=== PATIENT | male | born 1945 | race Caucasian/White ===

== ENCOUNTER → 2018-05-19 | Outpatient (CLI) | payer MEDICARE, BC ==
--- NOTE | 2018-05-19 11:15 | XR ---
EXAMINATION TYPE: XR hand complete LT DATE OF EXAM: 05/19/2018 CLINICAL HISTORY: Follow-up for fracture of the left fifth metacarpal. TECHNIQUE: Frontal, lateral and oblique images of the left hand are obtained. COMPARISON: None. FINDINGS: Healing subacute fracture deformity of the fifth metacarpal metaphysis and metacarpal head are seen with apex dorsal angulation and anterior (volar) displacement of the distal fracture fragmen t approximately 2 mm. Overlying soft tissue swelling remains of the ulnar aspect of the hand overlyin g the metacarpals. No radiopaque foreign body is seen. Mild arthropathy of the first metacarpal phala ngeal joint and distal interphalangeal joints is in the distribution of osteoarthritis. IMPRESSION: Healing fracture deformity of the distal fifth metacarpal metaphysis extending into the m etacarpal head.
== END | disposition home or self-care (01) ==
LOC: RADXRYALE 10:28
PROVIDERS: ATTEND Physician Assistant
DX: S62.397D Other fracture of fifth metacarpal bone, left hand, subsequent encounter for fracture with routine healing (principal)

== ENCOUNTER 2019-03-28 08:17 | Observation (INO) | payer MEDICARE, BC ==
--- NOTE | 2019-03-28 08:55 | ED ---
Arrhythmia/Palpitations HPI - General Chief Complaint: Arrhythmia/Palpitations Stated Complaint: A-Fib Time Seen by Provider: 03/28/19 08:30 Source: patient, RN notes reviewed Mode of arrival: wheelchair Limitations: no limitations - History of Present Illness Initial Comments: This is a 73-year-old male history of atrial fibrillation the past who states he had the onset this morning at about 6:30 of fluttering feeling in his chest he feels like he went back into his atrial fibrillation. He did take his medications this morning which included the beta vicky that he is on. No recent changes in the dosages. No other modifying factors he did have some slight shortness of breath with it no chest pain. He does state EKG goes into brief bouts of this. He did have an episode about a year ago in [place] where he was given IV medication as well as heart rate down and was as high as 170 bpm. MD Complaint: rapid heart beat, palpitations, atrial fibrillation - Related Data Home Medications Medication Instructions Recorded Confirmed Simvastatin 40 mg PO HS 08/06/15 03/28/19 Tamsulosin HCl 0.4 mg PO DAILY 08/06/15 03/28/19 Ascorbic Acid [Vitamin C] 500 mg PO DAILY 03/28/19 03/28/19 Aspirin 325 mg PO DAILY 03/28/19 03/28/19 Atenolol [Tenormin] 50 mg PO DAILY 03/28/19 03/28/19 L.acidoph,Paracasei, B.lactis 1 cap PO DAILY 03/28/19 03/28/19 [Probiotic] Multivitamins, Thera [Multivitamin 1 tab PO DAILY 03/28/19 03/28/19 (formulary)] Ubidecarenone [Co Q-10] 300 mg PO DAILY 03/28/19 03/28/19 Zolpidem Tartrate [Ambien] 10 mg PO HS 03/28/19 03/28/19 Allergies Allergy/AdvReac Type Severity Reaction Status Date / Time metronidazole [From Flagyl] Allergy Unknown Verified 03/28/19 08:49 Review of Systems ROS Statement: Those systems with pertinent positive or pertinent negative responses have been documented in the HPI. ROS Other: All systems not noted in ROS Statement are negative. Past Medical History Past Medical History: Cancer, Hyperlipidemia, Prostate Disorder Additional Past Medical History / Comment(s): palpitations. prostate CA-10/2012-HAD. chronic diarrhea since April 2015 History of Any Multi-Drug Resistant Organisms: None Reported Past Surgical History: Hernia Repair Additional Past Surgical History / Comment(s): COLONOSCOPY Past Anesthesia/Blood Transfusion Reactions: No Reported Reaction Smoking Status: Never smoker Past Alcohol Use History: Occasional Past Drug Use History: None Reported - Past Family History Mother Family Medical History: Unable to Obtain General Exam - General Exam Comments Initial Comments: This a well-developed well-nourished awake alert oriented 3 male Limitations: no limitations General appearance: alert, in no apparent distress Head exam: Present: atraumatic, normocephalic, normal inspection Eye exam: Present: normal appearance, PERRL, EOMI. Absent: scleral icterus, conjunctival injection, periorbital swelling ENT exam: Present: normal exam, mucous membranes moist Neck exam: Present: normal inspection, full ROM, other (No stridor JVD or bruits). Absent: tenderness, meningismus, lymphadenopathy Respiratory exam: Present: normal lung sounds bilaterally. Absent: respiratory distress, wheezes, rales, rhonchi, stridor Cardiovascular Exam: Present: irregular rhythm, normal heart sounds. Absent: systolic murmur, diastolic murmur, rubs, gallop, clicks GI/Abdominal exam: Present: soft, normal bowel sounds. Absent: distended, tenderness, guarding, rebound, rigid Extremities exam: Present: normal inspection, full ROM, normal capillary refill. Absent: tenderness, pedal edema, joint swelling, calf tenderness Back exam: Present: normal inspection Neurological exam: Present: alert, oriented X3, CN II-XII intact Psychiatric exam: Present: normal affect, normal mood Skin exam: Present: warm, dry, intact, normal color. 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 EKG Findings - EKG Results: EKG: interpreted by MARJORIE (Fibrillation rate was 94 QRS 78 QT since QTC 344/4:30 nonspecific inferior and anterior changes.) Medical Decision Making - Medical Decision Making Patient remains in atrial fibrillation he is on no anticoagulants at this time patient will be admitted with cardiology consultation the case is discussed with Dr. Martinez - Lab Data Result diagrams: 03/28/19 08:49 03/28/19 08:49 Lab Results 03/28/19 03/28/19 03/28/19 Range/Units 08:49 08:49 08:49 WBC 5.2 (3.8-10.6) k/uL RBC 4.99 (4.30-5.90) m/uL Hgb 14.3 (13.0-17.5) gm/dL Hct 42.5 (39.0-53.0) % MCV 85.2 (80.0-100.0) fL MCH 28.6 (25.0-35.0) pg MCHC 33.6 (31.0-37.0) g/dL RDW 13.8 (11.5-15.5) % Plt Count 196 (150-450) k/uL Neutrophils % 68 % Lymphocytes % 20 % Monocytes % 6 % Eosinophils % 5 % Basophils % 1 % Neutrophils # 3.5 (1.3-7.7) k/uL Lymphocytes # 1.0 (1.0-4.8) k/uL Monocytes # 0.3 (0-1.0) k/uL Eosinophils # 0.3 (0-0.7) k/uL Basophils # 0.0 (0-0.2) k/uL PT 10.1 (9.0-12.0) sec INR 0.9 (<1.2) APTT 23.5 (22.0-30.0) sec Sodium 140 (137-145) mmol/L Potassium 4.1 (3.5-5.1) mmol/L Chloride 106 (98-107) mmol/L Carbon Dioxide 25 (22-30) mmol/L Anion Gap 9 mmol/L BUN 11 (9-20) mg/dL Creatinine 0.72 (0.66-1.25) mg/dL Est GFR (CKD-EPI)AfAm >90 (>60 ml/min/1.73 sqM) Est GFR (CKD-EPI)NonAf >90 (>60 ml/min/1.73 sqM) Glucose 108 H (74-99) mg/dL Calcium 9.7 (8.4-10.2) mg/dL Magnesium 1.9 (1.6-2.3) mg/dL Total Bilirubin 1.2 (0.2-1.3) mg/dL AST 24 (17-59) U/L ALT 27 (21-72) U/L Alkaline Phosphatase 58 (38-126) U/L Creatine Kinase 87 (55-170) U/L Troponin I (0.000-0.034) ng/mL Total Protein 6.9 (6.3-8.2) g/dL Albumin 4.3 (3.5-5.0) g/dL TSH 3.200 (0.465-4.680) mIU/L 03/28/19 Range/Units 08:49 WBC (3.8-10.6) k/uL RBC (4.30-5.90) m/uL Hgb (13.0-17.5) gm/dL Hct (39.0-53.0) % MCV (80.0-100.0) fL MCH (25.0-35.0) pg MCHC (31.0-37.0) g/dL RDW (11.5-15.5) % Plt Count (150-450) k/uL Neutrophils % % Lymphocytes % % Monocytes % % Eosinophils % % Basophils % % Neutrophils # (1.3-7.7) k/uL Lymphocytes # (1.0-4.8) k/uL Monocytes # (0-1.0) k/uL Eosinophils # (0-0.7) k/uL Basophils # (0-0.2) k/uL PT (9.0-12.0) sec INR (<1.2) APTT (22.0-30.0) sec Sodium (137-145) mmol/L Potassium (3.5-5.1) mmol/L Chloride (98-107) mmol/L Carbon Dioxide (22-30) mmol/L Anion Gap mmol/L BUN (9-20) mg/dL Creatinine (0.66-1.25) mg/dL Est GFR (CKD-EPI)AfAm (>60 ml/min/1.73 sqM) Est GFR (CKD-EPI)NonAf (>60 ml/min/1.73 sqM) Glucose (74-99) mg/dL Calcium (8.4-10.2) mg/dL Magnesium (1.6-2.3) mg/dL Total Bilirubin (0.2-1.3) mg/dL AST (17-59) U/L ALT (21-72) U/L Alkaline Phosphatase (38-126) U/L Creatine Kinase (55-170) U/L Troponin I <0.012 (0.000-0.034) ng/mL Total Protein (6.3-8.2) g/dL Albumin (3.5-5.0) g/dL TSH (0.465-4.680) mIU/L - Radiology Data Radiology results: report reviewed (Did review the imaging and report no acute findings), image reviewed Disposition Clinical Impression: Atrial fibrillation Disposition: ADMITTED IP TO THIS [facility] Condition: Fair Referrals: Attila Melgar DO [Primary Care Provider] - 1-2 days
--- NOTE | 2019-03-28 09:11 | XR ---
EXAMINATION TYPE: XR chest 2V DATE OF EXAM: 03/28/2019 COMPARISON: NONE HISTORY: Dysrhythmia TECHNIQUE: Frontal and lateral views of the chest are obtained. FINDINGS: There is no focal air space opacity, pleural effusion, or pneumothorax seen. The cardiac silhouette size is within normal limits. The osseous structures are intact. There are overlying car diac leads. IMPRESSION: No acute cardiopulmonary process.
[2019-03-28 09:13] LABS: INR 0.9 (<1.2); Partial Thromboplastin Time 23.5 sec (22.0-30.0); Prothrombin Time 10.1 sec (9.0-12.0)
[2019-03-28 09:17] LABS: ALT 27 U/L (21-72); AST 24 U/L (17-59); Albumin 4.3 g/dL (3.5-5.0); Alkaline Phosphatase 58 U/L (38-126); Anion Gap 9 mmol/L; Blood Urea Nitrogen 11 mg/dL (9-20); Calcium 9.7 mg/dL (8.4-10.2); Carbon Dioxide 25 mmol/L (22-30); Chloride 106 mmol/L (98-107); Creatine Kinase 87 U/L (55-170); Glucose 108 mg/dL (74-99); Magnesium 1.9 mg/dL (1.6-2.3); Potassium 4.1 mmol/L (3.5-5.1); Sodium 140 mmol/L (137-145); Total Bilirubin 1.2 mg/dL (0.2-1.3); Total Protein 6.9 g/dL (6.3-8.2)
[2019-03-28 09:33] LABS: Basophils % (A) 1 %; Eosinophils # (A) 0.3 k/uL (0-0.7); Eosinophils % (A) 5 %; HCT 42.5 % (39.0-53.0); HGB 14.3 gm/dL (13.0-17.5); Lymphocytes % (A) 20 %; MCH 28.6 pg (25.0-35.0); MCHC 33.6 g/dL (31.0-37.0); MCV 85.2 fL (80.0-100.0); Mean Platelet Volume 7.6; Monocytes # (A) 0.3 k/uL (0-1.0); Monocytes % (A) 6 %; Neutrophils # (A) 3.5 k/uL (1.3-7.7); Neutrophils % (A) 68 %; Platelet Count 196 k/uL (150-450); RBC 4.99 m/uL (4.30-5.90); RDW 13.8 % (11.5-15.5); WBC 5.2 k/uL (3.8-10.6)
[2019-03-28] MEDS ORDERED: METOPROLOL TARTRATE 5 MG/5 ML VIAL IVP STA (12:04)
[2019-03-28] MEDS ORDERED: NALOXONE 0.4 MG/ML 1 ML VIAL IV PRN (12:10)
[2019-03-28] MEDS ORDERED: HEPARIN SODIUM,PORCINE 5,000 UNIT/ML 1 ML VIAL IV ONE (12:13)
[2019-03-28] MEDS ORDERED: HEPARIN SODIUM,PORCINE 5,000 UNIT/ML 1 ML VIAL IV PRN (12:13)
[2019-03-28] MEDS ORDERED: HEPARIN SOD,PORK IN 0.45% NACL 25,000 UNIT in 0.45% NACL 1 250ML.BAG IV SCH (12:15)
[2019-03-28] MEDS ORDERED: MAGNESIUM SULFATE-D5W PMX 1 GM in DEXTROSE/WATER 1 100ML.BAG IVPB ONE (12:15)
[2019-03-28 14:41] VITALS: BMI 27.1
[2019-03-28] MEDS: SODIUM CHLORIDE 0.9% 1,000 ML IV SCH (17:06)
[2019-03-28] MEDS: APIXABAN 5 MG TAB PO SCH (20:36)
[2019-03-28] MEDS ORDERED: ATORVASTATIN 20 MG TAB PO SCH (21:00)
[2019-03-28] MEDS ORDERED: ZOLPIDEM 10 MG TAB PO SCH (21:00)
[2019-03-28] MEDS ORDERED: TAMSULOSIN 0.4 MG CAP.ER.24H PO SCH (22:16)
[2019-03-28] MEDS ORDERED: TEMAZEPAM 15 MG CAP PO PRN (22:18)
[2019-03-28] MEDS ORDERED: LORazepam 1 MG TAB PO PRN (22:18)
--- NOTE | 2019-03-28 23:55 | CONS ---
CONSULTATION Mr. Rincon is a 73-year-old male who presented to the emergency room with symptoms of palpitations. He was noted to be in atrial fibrillation. The patient had a prior episode of atrial fibrillation about a year ago while in [place]. He subsequently converted to sinus mechanism. He underwent a full workup at that time, including a stress test and an echo; and according to him, it was unremarkable. He was seen by Dr. Sargent and has been stable. He is active physically. He walks on a regular basis without any associated symptoms. He denies any exertional chest pain. He denies any dizziness or palpitation on a regular basis. He has no PND or orthopnea, no peripheral edema. Today he felt the palpitations and mild dizziness. His coronary risk factors are negative for diabetes. He has hyperlipidemia. He does not carry the diagnosis of hypertension, although he is on atenolol 50 mg daily. He is a nonsmoker. SOCIAL HISTORY: He drinks 2 cups of coffee a day and 2 to 4 beers a day. REVIEW OF SYSTEMS: RESPIRATORY SYSTEM: No documented history of asthma, emphysema or bronchitis. GI SYSTEM: No recent GI bleeding. No peptic ulcer disease. SYSTEM: No dysuria or hematuria. NERVOUS SYSTEM: No stroke or seizure. PHYSICAL EXAMINATION: He is a 73-year-old male, alert, oriented, in no apparent distress. Blood pressure 143/80 with a heart rate in the 60s. HEAD: Normocephalic. Eyes: Sclerae nonicteric. NECK: Good carotid upstroke. No bruit. No jugular venous distention. LUNGS: Clear to auscultation. HEART: Regular rate, rhythm. S1, S2. No S3. No S4. No murmur or rub. ABDOMEN: Soft, nontender. Positive bowel sounds. No organomegaly. EXTREMITIES: No edema. Intact distal pulses. LAB DATA: Lab data revealed a troponin less than 0.012. BUN and creatinine of 11 and 0.72. Hemoglobin of 14.3. EKG revealed atrial fibrillation with a rate of [address]-T wave changes. Chest x-ray shows no acute infiltrate. IMPRESSION: 1. Paroxysmal atrial fibrillation. Patient is back in sinus mechanism at this time. 2. Hyperlipidemia. 3. Probable hypertension. RECOMMENDATIONS: I have discussed with the patient the issue of alcohol. I have encouraged him to stop his alcohol intake. I have recommended proceeding to initiate anticoagulation. His CHADS-VASC score 2 is 2 in regards to the age and the hypertension. I have discussed with him the rationale behind anticoagulation. I will try to obtain the results of his stress that was obtained in [place] and I will obtain an echocardiogram with Doppler. Depending on results of testing, further recommendations will be made. Thank you for this consult. Will follow with you. MARINA / VIJI: [id number] /
--- NOTE | 2019-03-29 06:18 | HP ---
HISTORY AND PHYSICAL DATE OF VISIT: 03/28/2019 CHIEF COMPLAINT: Palpitations. HISTORY OF PRESENT ILLNESS: This 73-year-old gentleman with a past medical history of multiple medical problems including history of hyperlipidemia, history of prostate disorder, history of atrial fibrillation, history of hernia repairs, being followed by Dr. Melgar in the outpatient setting. Patient had an episode of atrial fibrillation about a year ago. Today this morning the patient fluttering feeling of the chest and the patient was taken to [facility] and heart rate was found to 170. The patient was given beta blockers and Mag sulfate and cardiac rhythm converted to normal sinus rhythm. The patient is being closely monitored. Cardiology evaluation in progress. There is no history of chest pain. No history of headache, loss of conscious. No history of fever, rigors or chills. PAST MEDICAL HISTORY: History of atrial fibrillation, history of hyperlipidemia, history of prostate disorder, history of hernia repair. MEDICATIONS: Home medications are: 1. Tenormin 50 mg p.o. daily. 2. Probiotic 1 p.o. daily. 3. Vitamin C 500 mg p.o. daily. 4. Ambien 10 mg p.o. q.h.s. 5. Coenzyme Q 10, 300 mg p.o. daily. 6. Flomax 0.4 daily. 7. Simvastatin 40 mg q.h.s. 8. Multivitamins 1 p.o. daily. 9. Aspirin 325 mg daily. ALLERGIES: Allergies are FLAGYL. FAMILY HISTORY: History of dementia in the family and also Sanford's disease. SOCIAL HISTORY: Previous history of smoking. Alcohol intake, 2 to 3 drinks, beers, a day. REVIEW OF SYSTEMS: ENT: No diminished hearing or diminished vision. CARDIOVASCULAR SYSTEM: As mentioned earlier. RESPIRATORY SYSTEM: As mentioned earlier. GI: No nausea, vomiting. : No dysuria. NERVOUS SYSTEM: No numbness or weakness. ALLERGY/IMMUNOLOGY: No asthma. MUSCULOSKELETAL: As mentioned earlier. HEMATOLOGY/ONCOLOGY: No history of anemia. ENDOCRINE: No history of diabetes or hypothyroidism. CONSTITUTIONAL: As mentioned earlier. DERMATOLOGY: Negative. RHEUMATOLOGY: Negative. PSYCHIATRY: As mentioned earlier. PHYSICAL EXAMINATION: The patient is alert and oriented x3. Pulse is 61, regular, blood pressure 154/85, respiration 18, temperature 98 degrees, pulse ox 96% on 2 L. HEENT: Conjunctivae normal. Oral mucosa moist. NECK: No jugular venous distention. No carotid bruit. No lymph node enlargement. CARDIOVASCULAR: S1, S2 muffled. RESPIRATORY: Breath sounds diminished at the bases. No rhonchi, no crackles. ABDOMEN: Soft, nontender. No mass palpable. LEGS: No edema, no swelling. NERVOUS SYSTEM: Higher function as mentioned earlier. Moves all 4 limbs. No focal motor or sensory deficits LYMPHATICS: No lymphadenopathy of the neck, axillae or groin. SKIN: No ulcer, rash or bleeding. JOINTS: No active deforming arthropathy. LABS: CBC within normal limits. Glucose 108. TSH is normal at 3.200. ASSESSMENT: 1. Atrial fibrillation with fast ventricular rate. 2. Paroxysmal atrial fibrillation. 3. History of prostate disorder. 4. Prostate cancer. 5. History of diverticular disease. 6. History of hernia repair. 7. Remote history of nicotine dependence. 8. FULL CODE. RECOMMENDATIONS AND DISCUSSION: This 73-year-old gentleman who presented with multiple medical issues, at this time I recommend continue current medication, continue symptomatic treatment. Continue with beta blockers, cardiology evaluation and a 2-D echo has been ordered. We will continue to monitor. Prognosis guarded because of multiple complex medical issues. Further recommendations to follow. TSH has been normal. Home medications were continued. Discussed with the patient, understands. A copy of dictation forwarded to Dr. Melgar, who is the primary physician. MARINA / VIJI: [id number] / MTDD
[2019-03-29 07:10] LABS: Basophils # (A) 0.1 k/uL (0-0.2); Basophils % (A) 1 %; Eosinophils # (A) 0.3 k/uL (0-0.7); Eosinophils % (A) 5 %; HCT 39.7 % (39.0-53.0); HGB 13.3 gm/dL (13.0-17.5); Lymphocytes # (A) 1.1 k/uL (1.0-4.8); Lymphocytes % (A) 20 %; MCH 28.9 pg (25.0-35.0); MCHC 33.5 g/dL (31.0-37.0); MCV 86.4 fL (80.0-100.0); Mean Platelet Volume 7.4; Monocytes # (A) 0.4 k/uL (0-1.0); Monocytes % (A) 7 %; Neutrophils # (A) 3.6 k/uL (1.3-7.7); Neutrophils % (A) 64 %; Platelet Count 178 k/uL (150-450); RDW 13.8 % (11.5-15.5); WBC 5.6 k/uL (3.8-10.6)
[2019-03-29 07:22] LABS: Anion Gap 7 mmol/L; Blood Urea Nitrogen 13 mg/dL (9-20); Calcium 9.3 mg/dL (8.4-10.2); Carbon Dioxide 25 mmol/L (22-30); Chloride 106 mmol/L (98-107); Glucose 105 mg/dL (74-99); Potassium 4.2 mmol/L (3.5-5.1); Sodium 138 mmol/L (137-145)
[2019-03-29] MEDS ORDERED: PANTOPRAZOLE 40 MG TABLET PO SCH (07:30)
[2019-03-29 07:47] VITALS: BP 152/83; PULSE 77; RESP 16; TEMP 97.6
[2019-03-29] MEDS: APIXABAN 5 MG TAB PO SCH (07:53)
[2019-03-29] MEDS ORDERED: TAMSULOSIN 0.4 MG CAP.ER.24H PO SCH ×2 (09:00→21:00)
[2019-03-29] MEDS ORDERED: LACTOBACILLUS ACIDOPH & BULGAR 1 EACH PACKET PO SCH (09:00)
[2019-03-29] MEDS ORDERED: ATENOLOL 50 MG TAB PO SCH (09:00)
[2019-03-29] MEDS ORDERED: NON-FORMULARY DRUG (Ubidecarenone [Co Q-10] 300 MG) PO SCH (09:00)
[2019-03-29] MEDS ORDERED: ASPIRIN 325 MG TAB PO SCH (09:00)
[2019-03-29] MEDS ORDERED: MULTIVITAMINS, THERA 1 EACH TAB PO SCH (09:00)
[2019-03-29] MEDS ORDERED: ASCORBIC ACID 500 MG TAB PO SCH (09:00)
--- NOTE | 2019-03-29 10:18 | ECHOF ---
Referral Reason:atrial fibrillation MEASUREMENTS -------- HEIGHT: 182.9 cm WEIGHT: 90.7 kg BP: 158/83 RVIDd: 4.0 cm (< 3.3) IVSd: 1.2 cm (0.6 - 1.1) LVIDd: 3.3 cm (3.9 - 5.3) LVPWd: 1.2 cm (0.6 - 1.1) IVSs: 1.6 cm LVIDs: 2.3 cm LVPWs: 1.6 cm LAESV Index (A-L): 23.82 ml/m Ao Diam: 3.1 cm (2.0 - 3.7) AV Cusp: 1.8 cm (1.5 - 2.6) LA Diam: 2.6 cm (2.7 - 3.8) MV EXCURSION: 23.254 mm (> 18.000) MV EF SLOPE: 128 mm/s (70 - 150) EPSS: 0.7 cm MV E Dedrick: 0.95 m/s MV DecT: 294 ms MV A Dedrick: 0.92 m/s MV E/A Ratio: 1.03 RAP: 5.00 mmHg RVSP: 32.51 mmHg FINDINGS -------- Sinus rhythm. This was a technically good study. The left ventricular size is normal. There is mild concentric left ventricular hypertrophy. Overa ll left ventricular systolic function is normal with, an EF between 55 - 60 %. The right ventricle is moderately enlarged. Moderator band is visualized in the right ventricular a pex. The left atrial size is normal. Left atrium is normal size by volume. The right atrial size is normal. Interatrial and interventricular septum intact. The aortic valve is trileaflet and appears structurally normal. Mild mitral regurgitation is present. Mild tricuspid regurgitation present. There is no evidence of pulmonary hypertension. The right v entricular systolic pressure, as measured by Doppler, is 32.51mmHg. Pulmonic valve appears structurally normal. The aortic root size is normal. The inferior vena cava was not well visualized. There is no pericardial effusion. CONCLUSIONS -------- 1. Sinus rhythm. 2. This was a technically good study. 3. The left ventricular size is normal. 4. There is mild concentric left ventricular hypertrophy. 5. Overall left ventricular systolic function is normal with, an EF between 55 - 60 %. 6. The right ventricle is moderately enlarged. 7. Moderator band is visualized in the right ventricular apex. 8. The left atrial size is normal. 9. Left atrium is normal size by volume. 10. The right atrial size is normal. 11. Interatrial and interventricular septum intact. 12. The aortic valve is trileaflet and appears structurally normal. 13. Mild mitral regurgitation is present. 14. Mild tricuspid regurgitation present. 15. There is no evidence of pulmonary hypertension. 16. The right ventricular systolic pressure, as measured by Doppler, is 32.51mmHg. 17. Pulmonic valve appears structurally normal. 18. The aortic root size is normal. 19. The inferior vena cava was not well visualized. 20. There is no pericardial effusion. BOX STRAPPER: Shanthi Preciado RDCS
--- NOTE | 2019-03-29 10:33 | PN ---
PROGRESS NOTE Mr. Rincon is a 73-year-old male who presented with episode of atrial fibrillation, converted to sinus mechanism. He had a prior history of paroxysmal atrial fibrillation. He is doing well this morning. His breathing has been stable. He os denying any dizziness or palpitation. He denies any nausea. He is ambulating without difficulty. Continues to be on Eliquis 5 mg twice a day, atenolol 50 mg daily, Lipitor 20 mg daily. PHYSICAL EXAMINATION: VITAL SIGNS: Blood pressure running in the 140s to 150s with a heart rate in the 60s. LUNGS: Clear. HEART: Regular rate and rhythm. S1, S2. No S3. No rub. ABDOMEN: Soft, nontender. EXTREMITIES: No edema. LAB DATA: Lab data revealed BUN and creatinine 13 and 0.79. TSH is 3.1, potassium 4.2. IMPRESSION: 1. Paroxysmal atrial fibrillation in a patient with hypertension. 2. Hyperlipidemia. 3. Hypertension. RECOMMENDATION: I will review the results of his echocardiogram. If he is stable, I would expect he should be able to be discharged home today and followed as an outpatient with Dr. Newman. He will follow his blood pressure at home and depending on the trend, further adjustment can be made. I have discussed with him the rationale behind the anticoagulation and he is in full understanding and agreement. MMODL / IJN: [id number] /
[2019-03-29] MEDS: SODIUM CHLORIDE 0.9% 1,000 ML IV SCH (10:47)
--- NOTE | 2019-03-29 22:17 | DS ---
DISCHARGE SUMMARY DATE OF SERVICE: 03/29/2019 FINAL DIAGNOSES: 1. Atrial fibrillation with fast ventricular rate. 2. Paroxysmal atrial fibrillation. 3. History of prostate disorder. 4. Prostate cancer. 5. History of diverticular disease. 6. History of hernia repair. 7. Remote history of nicotine dependence. 8. FULL CODE. DISCHARGE DISPOSITION: The patient will be discharged in stable condition with guarded prognosis. HISTORY OF PRESENT ILLNESS: This 73-year-old gentleman who follows with Dr. Melgar in the outpatient setting. He has a past medical history of multiple medical problems and was admitted with atrial fibrillation with fast ventricular rate. Patient converted to normal sinus rhythm. The patient improved significantly. Cardiology saw the patient. Anticoagulation was recommended. A 2D echo with Doppler was done which revealed an ejection fraction about 55% to 60%. The LA was normal size by volume. On exam, vitals are stable. CARDIOVASCULAR SYSTEM: S1, S2 muffled. ABDOMEN: Soft. NERVOUS SYSTEM: No focal deficit. DISCHARGE ADVICE AND MEDICATIONS: 1. Discharge diet is cardiac. 2. Activity limited until followup. 3. Follow up with Dr. Melgar in 2-3 days. 4. Follow up with Dr. Newman as advised. 5. Ambien 10 mg p.o. at bedtime. 6. Coenzyme Q 300 mg p.o. daily. 7. Multivitamins 1 p.o. daily. 8. Probiotic 1 p.o. daily. 9. Simvastatin 40 mg at bedtime. 10.Flomax 0.4 daily. 11.Tenormin 50 mg p.o. daily. 12.Vitamin C 500 mg p.o. daily. 13.Ecotrin 81 mg p.o. daily. 14.Eliquis 5 mg p.o. b.i.d. Once again, the patient will be discharged in stable condition with guarded prognosis. MMODL / IJN: [id number] /
== END 2019-03-29 12:42 | disposition home or self-care (01) ==
LOC: EC 08:17 → 3SCARD 12:10
PROVIDERS: ADMIT Hospitalist; ATTEND Hospitalist
DX: I48.0 Paroxysmal atrial fibrillation (principal); E78.5 Hyperlipidemia, unspecified; I10 Essential (primary) hypertension; K52.9 Noninfective gastroenteritis and colitis, unspecified; Z98.890 Other specified postprocedural states; Z79.01 Long term (current) use of anticoagulants; Z79.82 Long term (current) use of aspirin; Z79.899 Other long term (current) drug therapy; Z85.46 Personal history of malignant neoplasm of prostate; Z87.891 Personal history of nicotine dependence; Z88.8 Allergy status to other drugs, medicaments and biological substances
CPT/HCPCS: 96366 ×2; 96376; 96368; 96365; 96375; 99285; 36415; 93005; 93306; 80053; 80048; 84443 ×2; 82550; 83735; 84484; 85025 ×2; 85610; 85730; 71046; G0378 ×2; J1644 ×2; J3475

== ENCOUNTER 2019-04-16 20:37 | Emergency (ER) | payer MEDICARE, BC ==
[2019-04-16 21:34] VITALS: RESP 18
--- NOTE | 2019-04-16 22:38 | ED ---
Male Urogenital HPI - General Chief complaint: Urogenital Stated complaint: Urine Retention Time Seen by Provider: 04/16/19 22:26 Source: patient Mode of arrival: ambulatory Limitations: no limitations - History of Present Illness Initial comments: Patient is a 74-year-old male presenting to the emergency center with his complaining of urinary retention since about 1:30. She states he recently had a procedure to freeze his prostate secondary to prostate cancer. He had his Coulter removed today at [facility] and was able to urinate once at the doctor's office. Said he went home and has not been able to urinate since about 1:30pm and is in a lot of pain. Patient stated he took an antibiotic from his urologist office as well today. Patient has no other complaints. - Related Data Home Medications Medication Instructions Recorded Confirmed Simvastatin 40 mg PO HS 08/06/15 03/28/19 Tamsulosin HCl 0.4 mg PO DAILY 08/06/15 03/28/19 Ascorbic Acid [Vitamin C] 500 mg PO DAILY 03/28/19 03/28/19 Atenolol [Tenormin] 50 mg PO DAILY 03/28/19 03/28/19 L.acidoph,Paracasei, B.lactis 1 cap PO DAILY 03/28/19 03/28/19 [Probiotic] Multivitamins, Thera [Multivitamin 1 tab PO DAILY 03/28/19 03/28/19 (formulary)] Ubidecarenone [Co Q-10] 300 mg PO DAILY 03/28/19 03/28/19 Zolpidem Tartrate [Ambien] 10 mg PO HS 03/28/19 03/28/19 Apixaban [Eliquis] 5 mg PO DIRECTED 04/16/19 04/16/19 Aspirin EC [Ecotrin Low Dose] 81 mg PO DIRECTED 04/16/19 04/16/19 Meclizine HCl 25 mg PO TID PRN 04/16/19 04/16/19 Allergies Allergy/AdvReac Type Severity Reaction Status Date / Time metronidazole [From Flagyl] Allergy Unknown Verified 04/16/19 22:35 Review of Systems ROS Statement: Those systems with pertinent positive or pertinent negative responses have been documented in the HPI. ROS Other: All systems not noted in ROS Statement are negative. Past Medical History Past Medical History: Cancer, Hyperlipidemia, Prostate Disorder Additional Past Medical History / Comment(s): Afib (RVR), palpitations, 2012 prostate cancer treated with high dose radiation seeds and pt states recently diagnosed with prostate cancer again and is to have surgery 04/09/19-prostate frozen at [facility], benign polypectomy, diverticular disease, BPH, past episodes of diarrhea-would last for 4 months., History of Any Multi-Drug Resistant Organisms: None Reported Past Surgical History: Hernia Repair Additional Past Surgical History / Comment(s): Bilateral inguinal hernia repairs, prostate seeds, colonoscopies. freezing of his prostate for CA, Past Anesthesia/Blood Transfusion Reactions: No Reported Reaction Past Psychological History: No Psychological Hx Reported Smoking Status: Former smoker Past Alcohol Use History: Rare Past Drug Use History: None Reported - Past Family History Father Family Medical History: Dementia Mother Additional Family Medical History / Comment(s): Mother had Rianna's disease. She had mental health problems. General Exam - General Exam Comments Initial Comments: GENERAL: Well-appearing, well-nourished and in no acute distress. HEAD: Atraumatic, normocephalic. EYES: Pupils equal round and reactive to light, extraocular movements intact, sclera anicteric, conjunctiva are normal. ENT: TMs normal, nares patent, oropharynx clear without exudates. Moist mucous membranes. NECK: Normal range of motion, supple without lymphadenopathy or JVD. LUNGS: Breath sounds clear to auscultation bilaterally and equal. No wheezes rales or rhonchi. HEART: Regular rate and rhythm without murmurs, rubs or gallops. ABDOMEN: Soft, nontender, normoactive bowel sounds. No guarding, no rebound. No masses appreciated. EXTREMITIES: Normal range of motion, no pitting or edema. No clubbing or cyanosis. NEUROLOGICAL: Cranial nerves II through XII grossly intact. Normal speech, normal gait. PSYCH: Normal mood, normal affect. SKIN: Warm, Dry, normal turgor, no rashes or lesions noted. Limitations: no limitations exam: Present: normal inspection, testicular tenderness, scrotal swelling (Scrotal swelling and bruising secondary to prostate procedure.) External exam: Present: normal external exam Course Vital Signs 04/16/19 21:29 Temperature 97.6 F Pulse Rate 73 Respiratory 18 Rate Blood Pressure 182/81 O2 Sat by Pulse 98 Oximetry Medical Decision Making - Medical Decision Making Patient is a 74-year-old male here complaining of urinary retention x 6-7 hours. Patient states he recently had a procedure on his prostate and had his catheter removed today at his urologists office. Patient has been unable to urinate since about 1:30 today. Patient received a Coulter catheter in the ER today and about 1400 mL was expelled. Patient reported immediate improvement. Patient will be sent home with a leg bag and will follow up with urologist in the morning. Case discussed with . Disposition Clinical Impression: Acute urinary retention Disposition: HOME SELF-CARE Condition: Stable Instructions (If sedation given, give patient instructions): Urinary Retention in Men (ED) Additional Instructions: Please return to the Emergency Department if symptoms worsen or any other concerns. Follow up with urologist in the morning. Is patient prescribed a controlled substance at d/c from ED?: No Referrals: Attila Melgar DO [Primary Care Provider] - 1-2 days
[2019-04-16 23:07] VITALS: BP 132/72; PULSE 72; TEMP 98
== END 2019-04-16 23:05 | disposition home or self-care (01) ==
LOC: EC 20:37
DX: R33.9 Retention of urine, unspecified (principal); E78.5 Hyperlipidemia, unspecified; N40.0 Benign prostatic hyperplasia without lower urinary tract symptoms; I48.91 Unspecified atrial fibrillation; Z87.891 Personal history of nicotine dependence; Z85.46 Personal history of malignant neoplasm of prostate; Z92.3 Personal history of irradiation; Z87.19 Personal history of other diseases of the digestive system; Z98.890 Other specified postprocedural states; Z79.01 Long term (current) use of anticoagulants; Z79.82 Long term (current) use of aspirin; Z79.899 Other long term (current) drug therapy; Z88.1 Allergy status to other antibiotic agents
CPT/HCPCS: 51702; 99283

== ENCOUNTER → 2019-10-10 | Outpatient (CLI) | payer MEDICARE, BC ==
--- NOTE | 2019-10-10 09:41 | US ---
EXAMINATION TYPE: US abdomen complete DATE OF EXAM: 10/10/2019 COMPARISON: NONE CLINICAL HISTORY: GERD w/o K21.9, R10.84 Abd pain. Patient states having stomach burning. EXAM MEASUREMENTS: Liver Length: 14.0 cm Gallbladder Wall: 0.2 cm CBD: 0.3 cm Spleen: 10.2 cm Right Kidney: 10.4 x 5.2 x 5.7 cm Left Kidney: 11.8 x 5.5 x 5.2 cm Pancreas: Main pancreatic duct - 1.9 mm, within normal limits Liver: Multiple cystic appearing lesions visualized. Largest on right - 2.5 x 2.5 x 2.6 cm. Larges t on left - 2.3 x 2.4 x 3.3 cm Gallbladder: wnl Evidence for sonographic Barnard's sign: neg CBD: wnl Spleen: wnl Right Kidney: Two cystic appearing lesions visualized - 1: lower pole in renal sinus = 1.8 x 2.4 x 2 .6 cm. 2: upper pole = 5.0 x 4.5 x 3.7 cm. Left Kidney: Lower pole cystic appearing lesion - 4.3 x 5.0 x 3.9 cm Upper IVC: wnl Abd Aorta: No AAA visualized The liver demonstrates multiple benign-appearing cysts with increased through transmission. The intr ahepatic portion of the IVC and proximal abdominal aorta are within normal limits. There is no evide nce of cholelithiasis. Common bile duct is unremarkable. The visualized portions of the pancreas ar e homogenous. The spleen is unremarkable. Kidneys are symmetric and free of hydronephrosis. Benign- appearing bilateral renal cysts also demonstrate increased or transmission. IMPRESSION: Multiple benign-appearing renal and hepatic cysts. Otherwise unremarkable exam. No sonogr aphic evidence of cholelithiasis nor acute cholecystitis.
== END ==
LOC: RADUSWWP 08:39
PROVIDERS: ATTEND Family Medicine
DX: K76.89 Other specified diseases of liver (principal); N28.1 Cyst of kidney, acquired
CPT/HCPCS: 76700

== ENCOUNTER → 2021-03-10 | Outpatient (CLI) | payer MEDICARE, BC ==
--- NOTE | 2021-03-10 11:25 | XR ---
EXAMINATION TYPE: XR lumbosacral spine min 4V DATE OF EXAM: 03/10/2021 COMPARISON: 04/15/2016 HISTORY: Lumbago TECHNIQUE: 5 view lumbar spine FINDINGS: Disc heights appear preserved. Vertebral body heights are preserved. Alignment is normal. T here are 5 lumbar-type vertebral bodies. The pedicles are intact. No spondylolytic defects are eviden t. Early facet changes may be present. No significant interval change is evident IMPRESSION: 1. No suspicious acute changes lumbar spine.
== END | disposition home or self-care (01) ==
LOC: RADXRYALE 11:00
PROVIDERS: ATTEND Family Medicine
DX: M54.5 Low back pain (principal)
CPT/HCPCS: 72110

== ENCOUNTER 2025-03-06 16:03 | Inpatient (IN) | payer MEDICARE, BC ==
[2025-03-06 17:16] LABS: Basophils # (A) 0.02 10*3/uL (0.00-0.10); Basophils % (A) 0.3 %; Eosinophils # (A) 0.01 10*3/uL (0.04-0.35); Eosinophils % (A) 0.1 %; HCT 31.7 % (39.6-50.0); HGB 11.3 g/dL (13.0-17.0); Lymphocytes # (A) 0.74 10*3/uL (0.90-5.00); Lymphocytes % (A) 9.7 %; MCH 30.1 pg (27.0-32.0); MCHC 35.6 g/dL (32.0-37.0); MCV 84.3 fL (80.0-97.0); Mean Platelet Volume 9.3 fL (9.5-12.2); Monocytes # (A) 0.95 10*3/uL (0.20-1.00); Monocytes % (A) 12.4 %; Platelet Count 271 10*3/uL (140-440); RBC 3.76 10*6/uL (4.40-5.60); RDW 12.7 % (11.5-14.5); WBC 7.66 10*3/uL (4.50-10.00)
[2025-03-06] MEDS: DILTIAZEM 125 MG in DEXTROSE 5% IN WATER 100 ML IV SCH (17:21)
[2025-03-06] MEDS: ASPIRIN 81 MG PO STA (17:21)
[2025-03-06] MEDS: DILTIAZEM 5 MG/ML 5 ML VIAL IVP STA (17:22)
[2025-03-06 17:28] LABS: INR 1.1 (<1.2); Partial Thromboplastin Time 25.6 sec (22.0-30.0); Prothrombin Time 12.2 sec (10.0-12.5)
[2025-03-06 17:32] LABS: ALT 108 U/L (4-49); AST 80 U/L (17-59); African American GFR (CKD) >90 (>60 ml/min/1.73 sqM); Albumin 3.1 g/dL (3.5-5.0); Alkaline Phosphatase 88 U/L (38-126); Anion Gap 6 mmol/L; Blood Urea Nitrogen 21 mg/dL (9-20); Calcium 8.3 mg/dL (8.4-10.2); Carbon Dioxide 24 mmol/L (22-30); Chloride 97 mmol/L (98-107); Glucose 125 mg/dL (74-99); Magnesium 1.8 mg/dL (1.6-2.3); Non-African American GFR(CKD) 88 (>60 ml/min/1.73 sqM); Potassium 4.2 mmol/L (3.5-5.1); Sodium 127 mmol/L (137-145); Total Protein 5.6 g/dL (6.3-8.2)
[2025-03-06 17:38] LABS: NT-Pro-B-Type Natriuretic Pept 3080 pg/mL
--- NOTE | 2025-03-06 17:45 | XR ---
EXAMINATION TYPE: XR chest 2V DATE OF EXAM: 03/06/2025 5:13 PM COMPARISON: Chest radiographs from 03/06/2025 CLINICAL INDICATION: Male, 79 years old with history of dysrhythmia; [facility] TECHNIQUE: XR chest 2V Frontal and lateral views of the chest. FINDINGS: Lungs/Pleura: There is no evidence of pleural effusion, focal consolidation, or pneumothorax. Pulmonary vascularity: Unremarkable. Heart/mediastinum: Cardiomediastinal silhouette is unremarkable. Musculoskeletal: No acute osseous pathology. IMPRESSION: No acute cardiopulmonary disease/process. [facility], , 03/06/2025 5:42 PM
[2025-03-06 17:52] LABS: Influenza A Not Detected (Not Detectd); Influenza B Not Detected (Not Detectd); RSV Not Detected (Not Detectd)
--- NOTE | 2025-03-06 18:06 | ED ---
General Adult HPI - General Chief complaint: Arrhythmia/Palpitations Stated complaint: Abn Labs Time Seen by Provider: 03/06/25 16:35 Source: patient, RN notes reviewed, old records reviewed Mode of arrival: wheelchair Limitations: no limitations - History of Present Illness Initial comments: Patient is a 79-year-old male who presents emergency department complaining of A-fib with RVR. Patient states he has been in A-fib with RVR more or less for 3 weeks. States he had a scheduled trip to [facility] and did not want to miss it and therefore still went. He just returned yesterday. States he has had heart rates consistently above 130 bpm. He has been compliant with his medications. States that while he was in [facility], he began experiencing cough and congestion productive of a yellowish sputum. No COPD or asthma history. No fevers or chills. No chest pain. No nausea or vomiting. No diarrhea. States he did have an episode of nausea and vomiting after eating some food and greasy and has lost his appetite for the last few days. However currently has no other acute complaints at this time. Presents for further evaluation. Has been compliant with blood thinners. - Related Data Home Medications Medication Instructions Recorded Confirmed Simvastatin 40 mg PO HS 08/06/15 03/06/25 Tamsulosin HCl 0.4 mg PO HS 08/06/15 03/06/25 Zolpidem Tartrate [Ambien] 10 mg PO 03/28/19 03/06/25 Apixaban [Eliquis] 5 mg PO BID@0800,199904/16/19 03/06/25 Furosemide [Lasix] 20 mg PO DAILY@79903/06/25 03/06/25 Omeprazole 20 mg PO DAILY@79903/06/25 03/06/25 carvediloL [Coreg] 25 mg PO BID@08,199903/06/25 03/06/25 hydrALAZINE HCL [Apresoline] 50 mg PO BID@08,199903/06/25 03/06/25 lisinopriL 40 mg PO DAILY@79903/06/25 03/06/25 Allergies Allergy/AdvReac Type Severity Reaction Status Date / Time metronidazole [From Flagyl] Allergy Unknown Verified 03/06/25 16:44 Review of Systems ROS Statement: Those systems with pertinent positive or pertinent negative responses have been documented in the HPI. Review of Systems: CONST: Denies fever EYES: Denies blurry vision ENT: Denies nasal congestion C/V: Denies Chest pain RESP: Denies shortness of breath GI: Denies abdominal pain : Denies dysuria SKIN: Denies rash. MSK: Denies joint pain. NEURO: Denies headache ROS Other: All systems not noted in ROS Statement are negative. Past Medical History Past Medical History: Cancer, Hyperlipidemia, Prostate Disorder Additional Past Medical History / Comment(s): Afib (RVR), palpitations, 2012 prostate cancer treated with high dose radiation seeds and pt states recently diagnosed with prostate cancer again and is to have surgery 04/09/19-prostate frozen at [facility], benign polypectomy, diverticular disease, BPH, past episodes of diarrhea-would last for 4 months., History of Any Multi-Drug Resistant Organisms: None Reported Past Surgical History: Hernia Repair Additional Past Surgical History / Comment(s): Bilateral inguinal hernia repairs, prostate seeds, colonoscopies. freezing of his prostate for CA, Past Anesthesia/Blood Transfusion Reactions: No Reported Reaction Past Psychological History: No Psychological Hx Reported Past Alcohol Use History: Rare Past Drug Use History: None Reported - Past Family History Father Family Medical History: Dementia Mother Additional Family Medical History / Comment(s): Mother had Yuma's disease. She had mental health problems. General Exam - General Exam Comments Initial Comments: General: Appears in no acute distress. HEAD: Normal with no signs of head trauma. EYES: PERRLA, EOMI, conjunctiva normal, no discharge. ENT: Hearing grossly intact, normal oropharynx. RESPIRATORY: Clear breath sounds bilaterally. No wheezes, rales, or rhonchi. C/V: Irregular rate and rhythm. S1 and S2 auscultated, mild bilateral symmetrical pitting edema of the lower extremities, peripheral pulses 2+ and intact throughout ABD: Abd is soft, nontender, nondistended EXT: Normal range of motion, no obvious deformity SKIN: No rashes or lesions observed on exposed skin. NEURO: Alert and oriented x 4. Limitations: no limitations Course Vital Signs 03/06/25 03/06/25 16:15 18:00 Temperature 97.8 F Pulse Rate 144 H 72 Respiratory 18 16 Rate Blood Pressure 100/59 111/78 O2 Sat by Pulse 98 96 Oximetry Medical Decision Making - Medical Decision Making Was pt. sent in by a medical professional or institution (EMELINA Johnson, DEBT AND BUDGET COUNSELOR, urgent care, hospital, or alf...) When possible be specific @ -No Did you speak to anyone other than the patient for history (EMS, parent, family, police, friend...)? What history was obtained from this source @ -No Did you review nursing and triage notes (agree or disagree)? Why? @ -I reviewed and agree with nursing and triage notes Were old charts reviewed (outside hosp., previous admission, EMS record, old EKG, old radiological studies, urgent care reports/EKG's, alf records)? Report findings @ -Old charts reviewed confirming patient is on Eliquis as well as carvedilol. Differential Diagnosis (chest pain, altered mental status, abdominal pain women, abdominal pain men, vaginal bleeding, weakness, fever, dyspnea, syncope, headache, dizziness, GI bleed, back pain, seizure, CVA, palpatations, mental health, musculoskeletal)? @ -A-fib with RVR, electrolyte abnormality, URI. This list is not all inclusive. EKG interpreted by me (3pts min.). @ -As above X-rays interpreted by me (1pt min.). @ -Chest x-ray reveals no obvious acute cardiopulmonary process CT interpreted by me (1pt min.). @ -None done U/S interpreted by me (1pt. min.). @ -None done What testing was considered but not performed or refused? (CT, X-rays, U/S, labs)? Why? @ -None What meds were considered but not given or refused? Why? @ -None Did you discuss the management of the patient with other professionals (professionals i.e. EMELINA Johnson, DEBT AND BUDGET COUNSELOR, lab, RT, psych nurse, director social welfare, experiential therapist, teacher, adult probation officer, outpatient case manager)? Give summary @ -Spoke with the admitting provider, Dr. Alarcon to the admission. Was smoking cessation discussed for >3mins.? @ -No Was critical care preformed (if so, how long)? @ -Yes, 34 minutes. Were there social determinants of health that impacted care today? How? (Homelessness, low income, unemployed, alcoholism, drug addiction, tra nsportation, low edu. Level, literacy, decrease access to med. care, shelter, rehab)? @ -No Was there de-escalation of care discussed even if they declined (Discuss DNR or withdrawal of care, Hospice)? DNR status @ -No What co-morbidities impacted this encounter? (DM, HTN, Smoking, COPD, CAD, Cancer, CVA, ARF, Chemo, Hep., AIDS, mental health diagnosis, sleep apnea, morbid obesity)? @ -Atrial fibrillation on blood thinners Was patient admitted / discharged? Hospital course, mention meds given and route, prescriptions, significant lab abnormalities, going to OR and other pertinent info. @ -Patient presents emergency department with A-fib with RVR. He has been in it for 3 weeks. Did not want to miss going on a vacation to [place]. Recently returned and presents for evaluation. Mild shortness of breath when he is exerting a lot of activity but otherwise is relatively asymptomatic. Has been having a productive cough and is concerned he may have a URI. Vitals otherwise are within acceptable limits. Has been compliant with his medications as well as blood thinners. We will obtain basic labs. Never had chest pain. Patient be started on a Cardizem drip. Patient is compliant with Eliquis and will continue that. He was in agreement this plan. Labs are remarkable for a hemoglobin of 11.3. No recent hemoglobin for comparison. Patient is mildly hyponatremic to 127 and hypochloremic to 96. Patient has an elevated BNP likely secondary to being in A-fib for 3 weeks with RVR. Viral swabs negative. Chest x-ray unremarkable. Repeat EKG shows that patient is in A-fib with rate control, now in the 70s. I after the patient. He will be admitted to the hospital for cardiology evaluation. I spoke with the admitting provider, Dr. Alarcon who accepted the admission. Undiagnosed new problem with uncertain prognosis? @ -No Drug Therapy requiring intensive monitoring for toxicity (Hep BNP slightly elevated at 3000 likely secondary to being in atrial fibrillation for 3 weeks.anna marie, Nitro, Insulin, Cardizem)? @ -No Were any procedures done? @ -No Diagnosis/symptom? @ -Atrial fibrillation with RVR, URI Acute, or Chronic, or Acute on Chronic? @ -Acute Uncomplicated (without systemic symptoms) or Complicated (systemic symptoms)? @ -Complicated Side effects of treatment? @ -No Exacerbation, Progression, or Severe Exacerbation? @ -No Poses a threat to life or bodily function? How? (Chest pain, [place], [place], pneumonia, PE, COPD, DKA, ARF, appy, cholecystitis, CVA, Diverticulitis, Homicidal, Suicidal, threat to staff... and all critical care pts) @ -Yes - Lab Data Result diagrams: 03/06/25 17:03 03/06/25 17:03 Lab Results 03/06/25 03/06/25 03/06/25 Range/Units 17:03 17:03 17:03 WBC 7.66 (4.50-10.00) 10*3/uL RBC 3.76 L (4.40-5.60) 10*6/uL Hgb 11.3 L (13.0-17.0) g/dL Hct 31.7 L (39.6-50.0) % MCV 84.3 (80.0-97.0) fL MCH 30.1 (27.0-32.0) pg MCHC 35.6 (32.0-37.0) g/dL Plt Count 271 (140-440) 10*3/uL MPV 9.3 L (9.5-12.2) fL Immature Gran % (Auto) 0.5 % Neutrophils % 77.0 % Lymphocytes % 9.7 % Monocytes % 12.4 % Eosinophils % 0.1 % Basophils % 0.3 % Immature Gran # 0.04 (0.00-0.04) 10*3/uL Neutrophils # 5.90 (1.80-7.70) 10*3/uL Lymphocytes # 0.74 L (0.90-5.00) 10*3/uL Monocytes # 0.95 (0.20-1.00) 10*3/uL Eosinophils # 0.01 L (0.04-0.35) 10*3/uL Basophils # 0.02 (0.00-0.10) 10*3/uL PT 12.2 (10.0-12.5) sec INR 1.1 (<1.2) APTT 25.6 (22.0-30.0) sec Sodium 127 L (137-145) mmol/L Potassium 4.2 (3.5-5.1) mmol/L Chloride 97 L (98-107) mmol/L Carbon Dioxide 24 (22-30) mmol/L Anion Gap 6 mmol/L BUN 21 H (9-20) mg/dL Creatinine 0.74 (0.66-1.25) mg/dL Est GFR (CKD-EPI)AfAm >90 (>60 ml/min/1.73 sqM) Est GFR (CKD-EPI)NonAf 88 (>60 ml/min/1.73 sqM) Glucose 125 H (74-99) mg/dL Calcium 8.3 L (8.4-10.2) mg/dL Magnesium 1.8 (1.6-2.3) mg/dL Total Bilirubin 1.0 (0.2-1.3) mg/dL AST 80 H (17-59) U/L ALT 108 H (4-49) U/L Alkaline Phosphatase 88 (38-126) U/L NT-Pro-B Natriuret Pep 3080 pg/mL Total Protein 5.6 L (6.3-8.2) g/dL Albumin 3.1 L (3.5-5.0) g/dL TSH 1.830 (0.465-4.680) mIU/L Influenza Type A (PCR) (Not Detectd) Influenza Type B (PCR) (Not Detectd) RSV (PCR) (Not Detectd) SARS-CoV-2 (PCR) (Not Detectd) 03/06/25 Range/Units 17:03 WBC (4.50-10.00) 10*3/uL RBC (4.40-5.60) 10*6/uL Hgb (13.0-17.0) g/dL Hct (39.6-50.0) % MCV (80.0-97.0) fL MCH (27.0-32.0) pg MCHC (32.0-37.0) g/dL Plt Count (140-440) 10*3/uL MPV (9.5-12.2) fL Immature Gran % (Auto) % Neutrophils % % Lymphocytes % % Monocytes % % Eosinophils % % Basophils % % Immature Gran # (0.00-0.04) 10*3/uL Neutrophils # (1.80-7.70) 10*3/uL Lymphocytes # (0.90-5.00) 10*3/uL Monocytes # (0.20-1.00) 10*3/uL Eosinophils # (0.04-0.35) 10*3/uL Basophils # (0.00-0.10) 10*3/uL PT (10.0-12.5) sec INR (<1.2) APTT (22.0-30.0) sec Sodium (137-145) mmol/L Potassium (3.5-5.1) mmol/L Chloride (98-107) mmol/L Carbon Dioxide (22-30) mmol/L Anion Gap mmol/L BUN (9-20) mg/dL Creatinine (0.66-1.25) mg/dL Est GFR (CKD-EPI)AfAm (>60 ml/min/1.73 sqM) Est GFR (CKD-EPI)NonAf (>60 ml/min/1.73 sqM) Glucose (74-99) mg/dL Calcium (8.4-10.2) mg/dL Magnesium (1.6-2.3) mg/dL Total Bilirubin (0.2-1.3) mg/dL AST (17-59) U/L ALT (4-49) U/L Alkaline Phosphatase (38-126) U/L NT-Pro-B Natriuret Pep pg/mL Total Protein (6.3-8.2) g/dL Albumin (3.5-5.0) g/dL TSH (0.465-4.680) mIU/L Influenza Type A (PCR) Not Detected (Not Detectd) Influenza Type B (PCR) Not Detected (Not Detectd) RSV (PCR) Not Detected (Not Detectd) SARS-CoV-2 (PCR) Not Detected (Not Detectd) - EKG Data -: EKG Interpreted by Me EKG Comments: 12-lead Electrocardiogram Interpretation Note EKG was reviewed and interpreted by myself. 12-lead ECG performed at 1628 is interpreted by me as revealing atrial fibrillation with RVR at a rate of 142 beats per minute. [place] is normal. QRS duration is 101 ms, QTc is [address] segment abnormalities present.. There were no ST or T wave abnormalities to suggest myocardial ischemia or injury. R wave progression across the precordium was satisfactory. By my interpretation this EKG is non- diagnostic for acute ischemia. 12-lead Electrocardiogram Interpretation Note EKG was reviewed and interpreted by myself. 12-lead ECG performed at 1742 is interpreted by me as revealing atrial fibrillation at a rate of 72 beats per minute. [place] is normal. NH interval is 166 ms, QRS duration is 92 ms, QTc is 378 ms.. There were no ST or T wave abnormalities to suggest myocardial ischemia or injury. R wave progression across the precordium was satisfactory. By my interpretation this EKG is non-diagnostic for acute ischemia. Critical Care Time Critical Care Time: Yes Total Critical Care Time: 34 Disposition Clinical Impression: Atrial fibrillation with RVR, URI (upper respiratory infection) Disposition: ADMITTED IP TO THIS HOSP Condition: Stable Referrals: Attila Melgar DO [Primary Care Provider] - 1-2 days Time of Disposition: 18:10
[2025-03-06] MEDS ORDERED: ACETAMINOPHEN TAB 325 MG TAB PO PRN (18:20)
[2025-03-06] MEDS ORDERED: ONDANSETRON 4 MG/2 ML VIAL IVP PRN (18:20)
[2025-03-06] MEDS ORDERED: NALOXONE 0.4 MG/ML 1 ML VIAL IV PRN (18:20)
[2025-03-06] MEDS: APIXABAN 5 MG TAB PO SCH (19:45)
[2025-03-06] MEDS: ATORVASTATIN 20 MG TAB PO SCH (20:11)
[2025-03-06] MEDS: TAMSULOSIN 0.4 MG CAP.ER.24H PO SCH (20:11)
[2025-03-06] MEDS: ZOLPIDEM 5 MG TAB PO SCH (20:11)
--- NOTE | 2025-03-06 22:26 | P.HPIM ---
History of Present Illness H&P Date: 03/06/25 79 year old male with afib on blood thinners , hyperlipidemia , BPH patient coming in for evaluation of afib with tachycardia, he started noticing it 3 weeks ago , but had to take a trip to [facility], and has just came back yesterday and decided to come in for evaluation , he does report associated s hortness of breath with activity , but denies chest pain , dizziness, lightheadedness, nausea vomiting , fever, chills, denies any bleeding . he has been compliant with medications, and if he takes it easy on himself , he would not feel it, but as he was monitoring the heart rate, it remained above 100 bpm for the past 3 weeks. denies smoking , illegal drugs or alcohol review of systems Pertinent positives as noted in HPI. All other systems were reviewed and are negative on exam Constitutional: No acute distress, conversant, pleasant Eyes: Anicteric sclerae, moist conjunctiva, Pupils equal round reactive to light ENMT: NC/AT Oropharynx clear, no erythema, or exudates Neck: Supple, no masses, or JVD No carotid bruits No thyromegaly Lungs: Clear to auscultation Clear to percussion Normal respiratory effort, no accessory muscle use Cardiovascular: Heart irregular in rate and rhythm, No murmurs, gallops, or rubs +1 bilateral peripheral leg edema Abdominal: Soft Nontender, no guarding, rebound or rigidity Abdomen moving with respiration Normoactive bowel sounds Extremities: No digital cyanosis No clubbing Pedal pulses intact and symmetrical Radial pulses intact and symmetrical No calf tenderness Psychiatric: Alert and oriented to person, place and time Appropriate affect fair judgement Neuro Muscles Strength 5/5 in all 4 extremities Sensation to light touch grossly present throughout Cranial nerves II-XII grossly intact Past Medical History Past Medical History: Cancer, Hyperlipidemia, Prostate Disorder Additional Past Medical History / Comment(s): Afib (RVR), palpitations, 2012 prostate cancer treated with high dose radiation seeds and pt states recently diagnosed with prostate cancer again and is to have surgery 04/09/19-prostate frozen at [facility], benign polypectomy, diverticular disease, BPH, pas t episodes of diarrhea-would last for 4 months., History of Any Multi-Drug Resistant Organisms: None Reported Past Surgical History: Hernia Repair Additional Past Surgical History / Comment(s): Bilateral inguinal hernia repai rs, prostate seeds, colonoscopies. freezing of his prostate for CA, Past Anesthesia/Blood Transfusion Reactions: No Reported Reaction Past Psychological History: No Psychological Hx Reported Past Alcohol Use History: Rare Past Drug Use History: None Reported - Past Family History Father Family Medical History: Dementia Mother Additional Family Medical History / Comment(s): Mother had Lyman's disease. She had mental health problems. Medications and Allergies Home Medications Medication Instructions Recorded Confirmed Type Simvastatin 40 mg PO HS 08/06/15 03/06/25 History Tamsulosin HCl 0.4 mg PO HS 08/06/15 03/06/25 History Zolpidem Tartrate [Ambien] 10 mg PO 03/28/19 03/06/25 History Apixaban [Eliquis] 5 mg PO BID@0800,199904/16/19 03/06/25 History Furosemide [Lasix] 20 mg PO DAILY@0800 03/06/25 03/06/25 History Omeprazole 20 mg PO DAILY@0800 03/06/25 03/06/25 History carvediloL [Coreg] 25 mg PO BID@0800,199903/06/25 03/06/25 History hydrALAZINE HCL [Apresoline] 50 mg PO BID@0800,199903/06/25 03/06/25 History lisinopriL 40 mg PO DAILY@0800 03/06/25 03/06/25 History Allergies Allergy/AdvReac Type Severity Reaction Status Date / Time metronidazole [From Flagyl] Allergy Unknown Verified 03/06/25 16:44 Physical Exam Vitals: Vital Signs Temp Pulse Resp BP Pulse Ox 03/06/25 20:00 90 17 121/75 98 03/06/25 18:00 72 16 111/78 96 03/06/25 16:15 97.8 F 144 H 18 100/59 98 Intake and Output 03/06/25 03/06/25 03/06/25 06:59 14:59 22:59 Other: Weight 92.986 kg Results CBC & Chem 7: 03/06/25 17:03 03/06/25 17:03 Labs: Abnormal Lab Results - Last 24 Hours (Table) 03/06/25 03/06/25 Range/Units 17:03 17:03 RBC 3.76 L (4.40-5.60) 10*6/uL Hgb 11.3 L (13.0-17.0) g/dL Hct 31.7 L (39.6-50.0) % MPV 9.3 L (9.5-12.2) fL Lymphocytes # 0.74 L (0.90-5.00) 10*3/uL Eosinophils # 0.01 L (0.04-0.35) 10*3/uL Sodium 127 L (137-145) mmol/L Chloride 97 L (98-107) mmol/L BUN 21 H (9-20) mg/dL Glucose 125 H (74-99) mg/dL Calcium 8.3 L (8.4-10.2) mg/dL AST 80 H (17-59) U/L ALT 108 H (4-49) U/L Total Protein 5.6 L (6.3-8.2) g/dL Albumin 3.1 L (3.5-5.0) g/dL Assessment and Plan Assessment: 79 year old male with afib, presented with tachycardia for the past 3 weeks , i discussed the case with ED doc and I accepted the admission for afib with rVR with anticipated length of stay > 2 midnights A-fib with RVR Cardizem drip Continue with Eliquis 5 mg twice daily Cardiology consult Potassium 4.2 unremarkable TSH 1.8 unremarkable Acute respiratory viral panel negative for RSV COVID and influenza Monitor vital signs Continue with Coreg Chest x-ray showed no acute cardiopulmonary process Hyponatremia Sodium 127 IV fluid hydration with normal saline at 100 cc/h Continue to monitor sodium Hypertension controlled Continue with Coreg lisinopril and hydralazine Hyperlipidemia Continue with statin Full code DVT prophylaxis on Eliquis for A-fib
[2025-03-07] MEDS: SODIUM CHLORIDE 0.9% 1,000 ML IV SCH (03:32)
[2025-03-07] MEDS: carvediloL 12.5 MG TAB PO SCH (08:19)
[2025-03-07] MEDS: FUROSEMIDE 20 MG TAB PO SCH (08:19)
[2025-03-07] MEDS: lisinopriL 20 MG TAB PO SCH (08:19)
[2025-03-07] MEDS: hydrALAZINE HCL 50 MG TAB PO SCH (08:19)
[2025-03-07 08:23] LABS: Basophils # (A) 0.03 10*3/uL (0.00-0.10); Basophils % (A) 0.4 %; Eosinophils # (A) 0.01 10*3/uL (0.04-0.35); Eosinophils % (A) 0.1 %; HCT 30.3 % (39.6-50.0); HGB 10.5 g/dL (13.0-17.0); Lymphocytes # (A) 0.82 10*3/uL (0.90-5.00); Lymphocytes % (A) 10.5 %; MCH 29.7 pg (27.0-32.0); MCHC 34.7 g/dL (32.0-37.0); MCV 85.8 fL (80.0-97.0); Mean Platelet Volume 9.9 fL (9.5-12.2); Monocytes # (A) 0.87 10*3/uL (0.20-1.00); Monocytes % (A) 11.1 %; Neutrophils # (A) 6.04 10*3/uL (1.80-7.70); Neutrophils % (A) 77.4 %; Platelet Count 267 10*3/uL (140-440); RBC 3.53 10*6/uL (4.40-5.60); RDW 12.7 % (11.5-14.5); WBC 7.81 10*3/uL (4.50-10.00)
[2025-03-07] MEDS ORDERED: MIDAZOLAM 2 MG/2 ML VIAL IV PRN ×2 (08:42→13:45)
[2025-03-07] MEDS ORDERED: fentaNYL (PF) 50 MCG/ML 5 ML AMP IVP PRN ×2 (08:42→13:45)
[2025-03-07 08:47] LABS: ALT 92 U/L (4-49); AST 57 U/L (17-59); African American GFR (CKD) >90 (>60 ml/min/1.73 sqM); Albumin 2.9 g/dL (3.5-5.0); Alkaline Phosphatase 90 U/L (38-126); Anion Gap 9 mmol/L; Blood Urea Nitrogen 15 mg/dL (9-20); Calcium 8.3 mg/dL (8.4-10.2); Carbon Dioxide 22 mmol/L (22-30); Chloride 97 mmol/L (98-107); Glucose 97 mg/dL (74-99); Magnesium 1.8 mg/dL (1.6-2.3); Non-African American GFR(CKD) 90 (>60 ml/min/1.73 sqM); Sodium 128 mmol/L (137-145); Total Bilirubin 0.9 mg/dL (0.2-1.3); Total Protein 5.2 g/dL (6.3-8.2)
--- NOTE | 2025-03-07 10:24 | P.CRDCN ---
History of Present Illness History of present illness: HISTORY OF PRESENT ILLNESS: This is a 79-year-old male with a past medical history significant for atrial fibrillation, hypertension, and hyperlipidemia. Patient follows in the office with Dr. Newman. We have been asked to see the patient in consultation for A-fib with RVR. Patient examined at the bedside. Patient presented to the hospital with a chief complaint of palpitations. Patient was found to be in A-fib with RVR. He was started on IV Cardizem. He remains in atrial fibrillation this morning at the time of examination. Denies chest pain or pressure. Blood pressure stable. DIAGNOSTICS: - EKG reveals atrial fibrillation with RVR. - Chest xray negative for acute process. - Laboratory data: WBC 7.81. Hemoglobin 10.5. Platelet count 267. Sodium 128. Potassium 4.0. BUN 15. Creatinine 0.71. BUN 15. Creatinine 0.71. Magnesium 1.8. proBNP 3080. TSH 1.830. - Current home cardiac medications include Eliquis 5 mg twice a day, simvastatin 40 mg at night, Lasix 20 mg daily, carvedilol 25 mg twice a day, hydralazine 50 mg twice a day, and lisinopril 40 mg daily. - Most recent echocardiogram obtained in July 2024 revealing ejection fraction 55%, trace aortic regurgitation, mild to moderate MR, mild to moderate TR - Cardiac catheterization history: Unknown REVIEW OF SYSTEMS: At the time of my exam: CONSTITUTIONAL: Denies fever or chills. HEENT: Denies blurred vision, vision changes, or eye pain. Denies hemoptysis CARDIOVASCULAR: Denies chest pain. Denies orthopnea. Denies PND. Denies palpitations RESPIRATORY: Denies shortness of breath. GASTROINTESTINAL: Denies abdominal pain. Denies nausea or vomiting. HEMATOLOGIC: Denies bleeding disorders. GENITOURINARY: Denies any blood in urine. SKIN: Denies pruitis. Denies rash. PHYSICAL EXAM: VITAL SIGNS: Reviewed. GENERAL: Well-developed in no acute distress. HEENT: Head is normocephalic. Pupils are equal, round. Sclerae anicteric. Mucous membranes of the mouth are moist. Neck supple. No JVD or thyromegaly LUNGS: Respirations even and unlabored. Lungs essentially clear to auscultation bilaterally. HEART: Irregular rate and rhythm. S1 and S2 heard. ABDOMEN: Soft. Nondistended. Nontender. EXTREMITIES: Normal range of motion. No clubbing or cyanosis. Peripheral pulses intact. No lower extremity edema NEUROLOGIC: Awake and alert. Oriented x 3. ASSESSMENT: Palpitations Paroxysmal atrial fibrillation with RVR Hypertension Hyperlipidemia PLAN: Discontinue IV Cardizem Resume home cardiac medications Continue anticoagulation with Eliquis N.p.o. Patient to undergo DENISA and cardioversion today with Dr. Newman Further recommendations pending patient course Nurse practitioner note has been reviewed by physician. Signing provider agrees with the documented findings, assessment, and plan of care documented by NEUROLOGY TECHNOLOGIST as a scribe. Past Medical History Past Medical History: Cancer, Hyperlipidemia, Prostate Disorder Additional Past Medical History / Comment(s): Afib (RVR), palpitations, 2012 prostate cancer treated with high dose radiation seeds and pt states recently diagnosed with prostate cancer again and is to have surgery 04/09/19-prostate frozen at [facility], benign polypectomy, diverticular disease, BPH, past episodes of diarrhea-would last for 4 months., History of Any Multi-Drug Resistant Organisms: None Reported Past Surgical History: Hernia Repair Additional Past Surgical History / Comment(s): Bilateral inguinal hernia repairs, prostate seeds, colonoscopies. freezing of his prostate for CA, Past Anesthesia/Blood Transfusion Reactions: No Reported Reaction Past Psychological History: No Psychological Hx Reported Past Alcohol Use History: Rare Past Drug Use History: None Reported - Past Family History Father Family Medical History: Dementia Mother Additional Family Medical History / Comment(s): Mother had Rianna's disease. She had mental health problems. Medications and Allergies Home Medications Medication Instructions Recorded Confirmed Type Simvastatin 40 mg PO HS 08/06/15 03/06/25 History Tamsulosin HCl 0.4 mg PO 08/06/15 03/06/25 History Zolpidem Tartrate [Ambien] 10 mg PO 03/28/19 03/06/25 History Apixaban [Eliquis] 5 mg PO BID@799,199904/16/19 03/06/25 History Furosemide [Lasix] 20 mg PO DAILY@0800 03/06/25 03/06/25 History Omeprazole 20 mg PO DAILY@0803/06/25 03/06/25 History carvediloL [Coreg] 25 mg PO BID@08,199930/25 04/30/25 History hydrALAZINE HCL [Apresoline] 50 mg PO BID@03/06/25 03/06/25 History lisinopriL 40 mg PO DAILY@79903/06/25 03/06/25 History Allergies Allergy/AdvReac Type Severity Reaction Status Date / Time metronidazole [From Flagyl] Allergy Unknown Verified 03/06/25 16:44 Physical Exam Vitals: Vital Signs Temp Pulse Resp BP Pulse Ox 03/07/25 07:05 85 16 138/85 96 03/07/25 06:00 90 17 140/85 94 L 03/07/25 03:00 71 16 104/61 92 L 03/06/25 20:00 90 17 121/75 98 03/06/25 18:00 72 16 111/78 96 03/06/25 16:15 97.8 F 144 H 18 100/59 98 Intake and Output 03/06/25 03/07/25 03/07/25 22:59 06:59 14:59 Other: Weight 92.986 kg Results 03/07/25 07:45 03/07/25 07:45 Cardiac Enzymes 03/06/25 03/07/25 Range/Units 17:03 07:45 AST 80 H 57 (17-59) U/L Coagulation 03/06/25 Range/Units 17:03 PT 12.2 (10.0-12.5) sec APTT 25.6 (22.0-30.0) sec CBC 03/06/25 03/07/25 Range/Units 17:03 07:45 WBC 7.66 7.81 (4.50-10.00) 10*3/uL RBC 3.76 L 3.53 L (4.40-5.60) 10*6/uL Hgb 11.3 L 10.5 L (13.0-17.0) g/dL Hct 31.7 L 30.3 L (39.6-50.0) % Plt Count 271 267 (140-440) 10*3/uL Comprehensive Metabolic Panel 03/06/25 03/07/25 Range/Units 17:03 07:45 Sodium 127 L 128 L (137-145) mmol/L Potassium 4.2 4.0 (3.5-5.1) mmol/L Chloride 97 L 97 L (98-107) mmol/L Carbon Dioxide 24 22 (22-30) mmol/L BUN 21 H 15 (9-20) mg/dL Creatinine 0.74 0.71 (0.66-1.25) mg/dL Glucose 125 H 97 (74-99) mg/dL Calcium 8.3 L 8.3 L (8.4-10.2) mg/dL AST 80 H 57 (17-59) U/L ALT 108 H 92 H (4-49) U/L Alkaline Phosphatase 88 90 (38-126) U/L Total Protein 5.6 L 5.2 L (6.3-8.2) g/dL Albumin 3.1 L 2.9 L (3.5-5.0) g/dL Current Medications Generic Name Dose Route Start Last Admin Trade Name Freq PRN Reason Stop Dose Admin Acetaminophen 650 mg 03/06/25 18:20 Acetaminophen Tab 325 Mg Tab PO Q6HR PRN Mild Pain or Fever > 100.5 Apixaban 5 mg 03/06/25 20:00 03/07/25 08:22 Apixaban 5 Mg Tab PO 5 mg BID@ JEMMA Administration Protocol Carvedilol 25 mg 03/07/25 07:30 03/07/25 08:19 Carvedilol 12.5 Mg Tab PO 25 mg BID-W/MEALS JEMMA Administration Fentanyl Citrate 50 mcg 03/07/25 08:42 Fentanyl (Pf) 50 Mcg/Ml 5 Ml Amp IVP 03/08/25 02:42 ONCE PRN Pre-Op Furosemide 20 mg 03/07/25 08:00 03/07/25 08:19 Furosemide 20 Mg Tab PO 20 mg DAILY@0800 JEMMA Administration Guaifenesin 600 mg 03/06/25 19:11 Guaifenesin 600 Mg Tablet.Er PO Q12HR PRN Cough Hydralazine HCl 50 mg 03/07/25 09:00 03/07/25 08:19 Hydralazine Hcl 50 Mg Tab PO 50 mg BID JEMMA Administration Diltiazem HCl 125 mg/ Dextrose 125 mls @ 5 mls/hr 03/06/25 17:15 03/06/25 17:21 /Water IV 5 mg/hr .Q24H JEMMA 5 mls/hr Administration Protocol 5 MG/HR Sodium Chloride 1,000 mls @ 100 mls/hr 03/07/25 02:45 03/07/25 03:32 Saline 0.9% IV 100 mls/hr .Q10H JEMMA Administration Lisinopril 40 mg 03/07/25 09:00 03/07/25 08:19 Lisinopril 20 Mg Tab PO 40 mg DAILY JEMMA Administration Midazolam HCl 1 mg 03/07/25 08:42 Midazolam 2 Mg/2 Ml Vial IV 03/08/25 02:42 ONCE PRN Pre-Op Naloxone HCl 0.2 mg 03/06/25 18:20 Naloxone 0.4 Mg/Ml 1 Ml Vial IV Q2M PRN Opioid Reversal Ondansetron HCl 4 mg 03/06/25 18:20 Ondansetron 4 Mg/2 Ml Vial IVP Q8HR PRN Nausea And Vomiting Tamsulosin HCl 0.4 mg 03/06/25 21:00 03/06/25 20:11 Tamsulosin 0.4 Mg Cap.Er.24h PO 0.4 mg HS JEMMA Administration Zolpidem Tartrate 10 mg 03/06/25 21:00 03/06/25 20:11 Zolpidem 5 Mg Tab PO 10 mg HS JEMMA Administration Intake and Output 03/06/25 03/07/25 03/07/25 22:59 06:59 14:59 Other: Weight 92.986 kg 03/07/25 07:45 03/07/25 07:45
--- NOTE | 2025-03-07 13:38 | P.PN ---
Subjective Progress Note Date: 03/07/25 Hospital Course: 79 year old male with a-fib on blood thinners , hyperlipidemia , BPH. Patient coming in for evaluation of a-fib with tachycardia, he started noticing it 3 weeks ago , but had to take a trip to [facility], and has just came back yesterday and decided to come in for evaluation , he does report associated shortness of breath with activity , but denies chest pain , dizziness, lightheadedness, nausea vomiting , fever, chills, denies any bleeding . he has been compliant with medications, and if he takes it easy on himself , he would not feel it, but as he was monitoring the heart rate, it remained above 100 bpm for the past 3 weeks. Denies smoking , illegal drugs or alcohol Review of systems: Pertinent positives as noted in HPI. All other systems were reviewed and are negative Subjective: Patient seen and examined at bedside. No acute events overnight. Pertinent positives and negatives as discussed above, a complete review of systems was performed and all other systems are negative. Vitals: Signs Reviewed Physical Exam: General: nontoxic, no distress, appears at stated age Derm: warm, dry, intact Head: atraumatic, normocephalic, symmetric Eyes: EOMI, anicteric sclera Mouth: no lip lesion, mucus membranes moist Cardiovascular: S1 S2 reg, no murmur, rubs, or gallops Lungs: CTA bilateral, no rhonchi, no rales, no accessory muscle use Abdominal: soft, non-tender to palpataion, no appreciable organomegaly Extremities: no gross muscle atrophy, no edema, no contractures Neuro: Alert, Oriented, CNII-XII grossly intact, gait normal Psych: well appearing, appropriate affect Data Received Today: Pertinent Labs: Hgb 10.5, MCV 85.8, sodium 128, BUN 14, creatinine 0.71, AST 57, ALT 92 Imaging: N/A Assessment and Plan: Patient is a 79-year-old male with a-fib currently anticoagulated, presenting with with tachycardia. #. Paroxysmal atrial fibrillation with RVR Cardizem has been discontinued Continue with Eliquis 5 mg twice daily Monitor potassium and magnesium TSH 1.8 unremarkable Acute respiratory viral panel negative for RSV COVID and influenza Monitor vital signs Continue with Coreg 25 mg p.o. twice daily Chest x-ray showed no acute cardiopulmonary process Cardiology note reviewed, DENISA and cardioversion scheduled for tomorrow will be placed NPO at midnight #. Hyponatremia Hypervolemic versus euvolemic Sodium 127 Continue with Lasix 20 mg p.o. daily, may discontinue depending on BMP this afternoon Fluids have been discontinued Follow-up BMP this afternoon #. Hypertension controlled Continue with Coreg 25 mg p.o. twice daily, lisinopril 40 mg p.o. daily, and hydralazine 50 mg p.o. twice daily #. Hyperlipidemia statin on hold due to elevated liver enzymes Follow-up CMP #. Normocytic anemia No signs of bleeding Iron studies in a.m. Follow-up CBC DVT ppx: Eliquis 5 mg PO BID Code status: Full code Anticipated discharge place: pending clinical course Anticipated discharge time: pending clinical course Laz Martines MD PGY-1 IM Dictation was produced using [employer] dictation software. please excuse any grammatical, word or spelling errors. I have seen and evaluated the patient today. Discussed with the resident and agree with the residents finding and plan as documented in the resident's note. Changes highlighted in blue font. Objective - Vital Signs Vital signs: Vital Signs Temp 97.8 F 03/06/25 16:15 Pulse 85 03/07/25 07:05 Resp 16 03/07/25 07:05 BP 138/85 03/07/25 07:05 Pulse Ox 96 03/07/25 07:05 FiO2 Intake & Output 03/06/25 03/07/25 03/07/25 18:59 06:59 18:59 Weight 92.986 kg - Labs CBC & Chem 7: 03/07/25 07:45 03/07/25 07:45 Labs: Abnormal Lab Results - Last 24 Hours (Table) 03/06/25 03/06/25 Range/Units 17:03 17:03 RBC 3.76 L (4.40-5.60) 10*6/uL Hgb 11.3 L (13.0-17.0) g/dL Hct 31.7 L (39.6-50.0) % MPV 9.3 L (9.5-12.2) fL Lymphocytes # 0.74 L (0.90-5.00) 10*3/uL Eosinophils # 0.01 L (0.04-0.35) 10*3/uL Sodium 127 L (137-145) mmol/L Chloride 97 L (98-107) mmol/L BUN 21 H (9-20) mg/dL Glucose 125 H (74-99) mg/dL Calcium 8.3 L (8.4-10.2) mg/dL AST 80 H (17-59) U/L ALT 108 H (4-49) U/L Total Protein 5.6 L (6.3-8.2) g/dL Albumin 3.1 L (3.5-5.0) g/dL
[2025-03-07 15:53] LABS: African American GFR (CKD) >90 (>60 ml/min/1.73 sqM); Anion Gap 8 mmol/L; Blood Urea Nitrogen 13 mg/dL (9-20); Calcium 8.5 mg/dL (8.4-10.2); Carbon Dioxide 25 mmol/L (22-30); Chloride 97 mmol/L (98-107); Glucose 107 mg/dL (74-99); Non-African American GFR(CKD) >90 (>60 ml/min/1.73 sqM); Potassium 3.7 mmol/L (3.5-5.1); Sodium 130 mmol/L (137-145)
[2025-03-08 06:49] LABS: Basophils # (A) 0.02 10*3/uL (0.00-0.10); Basophils % (A) 0.3 %; Eosinophils # (A) 0.02 10*3/uL (0.04-0.35); Eosinophils % (A) 0.3 %; HCT 32.2 % (39.6-50.0); HGB 11.2 g/dL (13.0-17.0); Lymphocytes # (A) 0.69 10*3/uL (0.90-5.00); Lymphocytes % (A) 10.8 %; MCH 29.9 pg (27.0-32.0); MCHC 34.8 g/dL (32.0-37.0); MCV 86.1 fL (80.0-97.0); Mean Platelet Volume 9.7 fL (9.5-12.2); Monocytes % (A) 10.9 %; Neutrophils # (A) 4.94 10*3/uL (1.80-7.70); Neutrophils % (A) 77.1 %; Platelet Count 290 10*3/uL (140-440); RBC 3.74 10*6/uL (4.40-5.60); RDW 12.6 % (11.5-14.5); WBC 6.41 10*3/uL (4.50-10.00)
[2025-03-08 07:18] LABS: ALT 79 U/L (4-49); AST 42 U/L (17-59); African American GFR (CKD) >90 (>60 ml/min/1.73 sqM); Alkaline Phosphatase 92 U/L (38-126); Anion Gap 8 mmol/L; Blood Urea Nitrogen 11 mg/dL (9-20); Calcium 8.5 mg/dL (8.4-10.2); Carbon Dioxide 24 mmol/L (22-30); Chloride 100 mmol/L (98-107); Glucose 116 mg/dL (74-99); Magnesium 1.8 mg/dL (1.6-2.3); Non-African American GFR(CKD) 88 (>60 ml/min/1.73 sqM); Potassium 3.8 mmol/L (3.5-5.1); Sodium 132 mmol/L (137-145); Total Bilirubin 0.9 mg/dL (0.2-1.3); Total Protein 5.5 g/dL (6.3-8.2)
[2025-03-08 09:08] VITALS: TEMP 98
[2025-03-08] MEDS: SODIUM CHLORIDE 0.9% 500 ML 500 ML IV ONE (09:11)
[2025-03-08] MEDS: BENZOCAINE SPRAY 1 EACH MUCOUS MEM STA (09:18)
[2025-03-08] MEDS ORDERED: PROPOFOL 10 MG/ML 20 ML VIAL IV ONE (09:20)
[2025-03-08] MEDS ORDERED: LIDOCAINE 1% INJ 10MG/ML (20 ML MDV) ONE (09:20)
[2025-03-08 10:21] VITALS: PULSE 77
[2025-03-08] MEDS: guaiFENesin 600 MG TABLET.ER PO PRN (10:24)
--- NOTE | 2025-03-08 10:51 | ECHOT ---
TRANSESOPHAGEAL ECHOCARDIOGRAM STUDY PERFORMED: DENISA and cardioversion. DENISA INDICATION: To rule out intracardiac thrombus prior to cardioversion; persistent atrial fibrillation. PROCEDURE NOTE: After obtaining informed consent, transesophageal echocardiogram was performed in the left lateral position using an Omniplane probe. Local and IV sedation were obtained by the moisture machine tender. FINDINGS: 1. There is no intracardiac thrombus within the left atrial appendage, left atrium, right atrium, right ventricle, or left ventricle. 2. Left atrium appears enlarged. 3. Right atrium and right ventricle exam within normal limits. 4. Left ventricle has normal size and systolic function. 5. There is small pericardial effusion noted. 6. Mitral valve shows mild to moderate central mitral regurgitation noted. Aortic valve is free of stenosis or regurgitation. There is mild tricuspid regurgitation. Aortic root appears normal. There is no evidence of [id number] shunt by color- flow Doppler or [id number] shunt by agitated saline contrast study. CONCLUSIONS: 1. No intracardiac thrombus. 2. Small pericardial effusion. 3. Preserved LV function. PLAN: The patient will undergo cardioversion. MMODL / IJN: [id number] /
[2025-03-08] MEDS ORDERED: SODIUM CHLORIDE 0.9% 1,000 ML IV SCH (11:00)
[2025-03-08 11:05] VITALS: BP 139/70; RESP 17
--- NOTE | 2025-03-08 11:55 | P.DS ---
Providers Date of admission: 03/06/25 18:20 Discharge Diagnosis: Paroxysmal atrial fibrillation with RVR Hypervolemic hyponatremia Hypertension controlled Hyperlipidemia Normocytic anemia Hospital Course: Patient is a 79 year old male with a-fib on anticoagulation with Eliquis, hyperlipidemia , BPH. Patient coming in for evaluation of a-fib with tachycardia, he started noticing it 3 weeks ago , but had to take a trip to [facility], and has just came back yesterday and decided to come in for evaluation , he does report associated shortness of breath with activity , but denies chest pain , dizziness, lightheadedness, nausea vomiting , fever, chills, denies any bleeding . he has been compliant with medications, and if he takes it easy on himself , he would not feel it, but as he was monitoring the heart rate, it remained above 100 bpm for the past 3 weeks. Denies smoking , illegal drugs or alcohol. EKG independently interpreted displaying atrial fibrillation with RVR, bpm 142, QTc 358 ms CXR independently interpreted displaying no acute cardiopulmonary process Vitals on admission displayed temperature 97.8 degrees 9F, pulse rate of 144, respiratory rate 18, blood pressure 100/59, O2 saturation 98% on room air Labs displayed proBNP 3080, Hgb 11.3, MCV 84.3, sodium 127, potassium 4.2, magnesium 1.8, BUN 21, creatinine 0.74, TSH 1.830 Cepheid 4 Plex unremarkable for influenza A/B, COVID, RSV In the ED he was placed on Cardizem drip. Patient was admitted for further management of paroxysmal atrial fibrillation with RVR with cardiology consulted. Patient converted to normal sinus rhythm while being on Cardizem drip. Cardizem drip was discontinued however patient reverted back to A-fib with RVR. He was seen and evaluated by cardiology and decided to go forward with DENISA and cardioversion. DENISA displayed no intracardiac thrombus, small pericardial effusion, preserved LV function. Patient underwent cardioversion and converted back to sinus rhythm. He was cleared by cardiology. Patient was also treated for hypervolemic hyponatremia but with holding fluids and resuming him back on his home Lasix which ultimately improved his sodium. He will follow-up with cardiology and his PCP. Patient can be discharged home today. Patient seen and examined at bedside. Vital signs reviewed and stable. Physical examination: Vital signs reviewed General: non toxic, no distress, appears at stated age, normal weight Derm: no unusual rashes/lesions, warm Head: atraumatic, normocephalic, symmetric Eyes: EOMI, anicteric sclera, pupils equal round reactive to light Cardiovascular: S1S2 reg, no murmur, positive dorsalis pedis pulse bilateral, no edema Lungs: CTA bilateral, no rhonchi, no rales, no accessory muscle use Abdominal: soft, nontender to palpation, no guarding Ext: muscle strength 5 out of 5 in all 4 extremities grossly, no gross muscle atrophy Neuro: CN II-XI grossly intact, no gross focal neuro deficits Psych: Alert, oriented to person, place, and time A total of greater than 30 minutes of time were spent preparing this complex discharge summary. Patient was discharge on March 08, 2025 at 11:23 AM. Laz Martines MD PGY-1 IM Dictation was produced using [employer] dictation software. please excuse any grammatical, word or spelling errors. I have seen and evaluated the patient today. Discussed with the resident and agree with the residents finding and plan as documented in the resident's note. Changes highlighted in blue font. Attending physician: Deuce Alarcon MD Consults: 03/06/25 18:20 Consult Physician Routine Consulting Provider: [facility] Consult Reason/Comments: afib with rvr Do you want consulting provider notified?: Yes Primary care physician: Attila Melgar Plan - Discharge Summary Discharge Rx Participant: No New Discharge Prescriptions: Continue Tamsulosin HCl 0.4 mg PO HS Simvastatin 40 mg PO HS Zolpidem Tartrate [Ambien] 10 mg PO HS Apixaban [Eliquis] 5 mg PO BID@ lisinopriL 40 mg PO DAILY@0800 Furosemide [Lasix] 20 mg PO DAILY@0800 hydrALAZINE HCL [Apresoline] 50 mg PO BID@ Omeprazole 20 mg PO DAILY@0800 carvediloL [Coreg] 25 mg PO BID@ Discharge Medication List Simvastatin 40 mg PO HS 08/06/15 [History] Tamsulosin HCl 0.4 mg PO HS 08/06/15 [History] Zolpidem Tartrate [Ambien] 10 mg PO HS 03/28/19 [History] Apixaban [Eliquis] 5 mg PO BID@799,199904/16/19 [History] Furosemide [Lasix] 20 mg PO DAILY@79903/06/25 [History] Omeprazole 20 mg PO DAILY@79903/06/25 [History] carvediloL [Coreg] 25 mg PO BID@799,199903/06/25 [History] hydrALAZINE HCL [Apresoline] 50 mg PO BID@799,199903/06/25 [History] lisinopriL 40 mg PO DAILY@79903/06/25 [History] Follow up Appointment(s)/Referral(s): Attila Melgar DO [Primary Care Provider] - 03/14/25 2:20 pm Jong Newman MD [STAFF PHYSICIAN] - 03/12/25 11:00 am Patient Instructions/Handouts: A-fib (Atrial Fibrillation) (DC), Cardioversion (DC) Activity/Diet/Wound Care/Special Instructions: Please follow up with PCP and cardiology. Discharge Disposition: HOME SELF-CARE
--- NOTE | 2025-03-08 13:55 | PCN ---
PROCEDURE NOTE PROCEDURE PERFORMED: Cardioversion. INDICATIONS: Persistent atrial fibrillation with rapid ventricular rate. After ruling out an intracardiac thrombus with a transesophageal echo and adequate anticoagulation with Eliquis, the patient underwent cardioversion with 150 joules of synchronized DC current. He converted to sinus rhythm following the single shock. We will continue him on the Eliquis and adjust his medications as needed and hopefully, he can be discharged to home later today. MMODL / IJN: [id number] /
[2025-03-08] MEDS ORDERED: ATORVASTATIN 20 MG TAB PO SCH (21:00)
== END 2025-03-08 12:49 | disposition home or self-care (01) | DRG 309 ==
LOC: EC 16:03 → 3SCARD 18:20
PROVIDERS: ADMIT Family Medicine; ATTEND Family Medicine
PROC: B246ZZ4 Ultrasonography of Right and Left Heart, Transesophageal (ICD-10-PCS; 2025-03-08)
PROC: 5A2204Z Restoration of Cardiac Rhythm, Single (ICD-10-PCS; principal; 2025-03-08 14:00)
DX: I48.0 Paroxysmal atrial fibrillation (principal); E87.1 Hypo-osmolality and hyponatremia; I10 Essential (primary) hypertension; D64.9 Anemia, unspecified; E78.5 Hyperlipidemia, unspecified; R00.2 Palpitations; Z79.899 Other long term (current) drug therapy; Z79.01 Long term (current) use of anticoagulants; Z85.46 Personal history of malignant neoplasm of prostate; N40.0 Benign prostatic hyperplasia without lower urinary tract symptoms; E87.70 Fluid overload, unspecified
CPT/HCPCS: 36415; 71046; 80048; 80053; 83735; 83880; 84443; 85025; 85610; 85730; 87636; 92960; 93005; 93312; 93320; 93325; 96361; 96365; 96366; 99291

== ENCOUNTER → 2025-03-06 | Outpatient (CLI) | payer MEDICARE, BC ==
--- NOTE | 2025-03-06 16:02 | XR ---
EXAMINATION TYPE: XR chest 2V DATE OF EXAM: 03/06/2025 2:34 PM COMPARISON: 03/28/2019 CLINICAL INDICATION: Male, 79 years old with history of R000,R0600 TACHYCARDIA, DYSPNEA, , TECHNIQUE: Frontal and lateral views FINDINGS: Heart upper limits of normal in size. Hyperinflation. Aorta and pulmonary vasculature within normal l imits. Tiny atelectasis in the lower lungs. No consolidation or pleural effusion. IMPRESSION: Borderline heart size. Possible underlying COPD. No definite acute process. [facility], Workstation: [facility], 03/06/2025 4:00 PM
== END | disposition home or self-care (01) ==
LOC: RADXRYALE 14:19
PROVIDERS: ATTEND Physician Assistant
DX: R00.0 Tachycardia, unspecified (principal); R06.00 Dyspnea, unspecified
CPT/HCPCS: 71046

== ENCOUNTER 2025-05-16 05:57 | Day surgery (SDC) | payer MEDICARE, BC ==
[~2025-05-16 05:57] MED LIST: SODIUM CHLORIDE 0.9% 500 ML 500 ML IV SCH
[2025-05-16] MEDS: IV FLUID CONTINUATION 1,000 ML IV ONE (06:38)
[2025-05-16 06:54] VITALS: TEMP 97.4
[2025-05-16 07:16] LABS: Basophils # (A) 0.04 10*3/uL (0.00-0.10); Basophils % (A) 0.9 %; Eosinophils # (A) 0.09 10*3/uL (0.04-0.35); Eosinophils % (A) 2.0 %; HCT 38.3 % (39.6-50.0); HGB 13.2 g/dL (13.0-17.0); Lymphocytes # (A) 0.85 10*3/uL (0.90-5.00); Lymphocytes % (A) 19.0 %; MCH 29.1 pg (27.0-32.0); MCHC 34.5 g/dL (32.0-37.0); MCV 84.4 fL (80.0-97.0); Monocytes # (A) 0.58 10*3/uL (0.20-1.00); Monocytes % (A) 12.9 %; Neutrophils # (A) 2.91 10*3/uL (1.80-7.70); Neutrophils % (A) 65.0 %; Platelet Count 166 10*3/uL (140-440); RBC 4.54 10*6/uL (4.40-5.60); RDW 14.2 % (11.5-14.5); WBC 4.48 10*3/uL (4.50-10.00)
[2025-05-16 07:24] VITALS: RESP 14
[2025-05-16 07:26] LABS: Anion Gap 8.0 mmol/L; Carbon Dioxide 27.0 mmol/L (22-30); Chloride 103.0 mmol/L (98-107); Potassium 3.6 mmol/L (3.5-5.1); Sodium 138.0 mmol/L (137-145)
[2025-05-16 07:49] VITALS: BP 168/98; PULSE 54
== END 2025-05-16 07:56 | disposition home or self-care (01) ==
LOC: OR 05:57
PROVIDERS: ATTEND Internal Medicine Cardiovascular Disease
DX: I48.4 Atypical atrial flutter (principal); Z53.8 Procedure and treatment not carried out for other reasons; I10 Essential (primary) hypertension; E78.5 Hyperlipidemia, unspecified; Z79.01 Long term (current) use of anticoagulants; Z79.899 Other long term (current) drug therapy; Z87.891 Personal history of nicotine dependence; Z88.8 Allergy status to other drugs, medicaments and biological substances
CPT/HCPCS: 80051; 85025